=== PATIENT | male | born 1995 | race Two or more races ===

== ENCOUNTER 2020-07-03 04:30 | Inpatient (IN) | payer MEDICAID ==
[2020-07-03] VITALS (8 sets, daily range): BP systolic 110–120; BP diastolic 65–75
[~2020-07-03] VITALS: Ht 172.7 cm; Wt 50.5 kg
[2020-07-03] MEDS ORDERED: PERTUSS(ACELL),DIPH,TET VAC/PF 0.5 ML SYRINGE IM. ONE (04:45)
[2020-07-03 05:03] LABS: COVID AG,FIA SOURCE NASOPHARYNGEAL
[2020-07-03 05:08] LABS: BASOPHILS % (AUTO) 0.2 % (0.0-2.0); EOSINOPHILS % (AUTO) 0 % (1.0-6.0); HEMATOCRIT 44.5 % (41-53); HEMOGLOBIN 15.1 g/dL (13.5-17.5); LYMPHOCYTES # (AUTO) 1.1 K/uL (1.0-4.8); LYMPHOCYTES % (AUTO) 6.3 % (22.0-44.0); MEAN CORPUSCULAR HEMOGLOBIN 30.6 pg (26.0-34.0); MEAN CORPUSCULAR HGB CONC 33.9 G/dL (31.0-37.0); MEAN CORPUSCULAR VOLUME 90 fL (80-100); MONOCYTES # (AUTO) 0.5 K/uL (0.1-1.0); NEUTROPHILS # (AUTO) 16.1 K/uL (1.8-7.7); PLATELET COUNT (AUTO) 290 K/uL (150-450); RED BLOOD CELL COUNT(AUTO) 4.93 MIL/uL (4.50-5.90); RED CELL DISTRIBUTION WIDTH 12.7 % (11.5-14.5)
[2020-07-03] MEDS ORDERED: DiphenhydrAMINE HCL 50 MG/ML VIAL IM ONE (05:15)
[2020-07-03] MEDS ORDERED: HALOPERIDOL LACTATE 5 MG/ML VIAL IM ONE (05:15)
[2020-07-03] MEDS ORDERED: LORazepam 2 MG/ML VIAL IM ONE (05:15)
[2020-07-03 05:16] LABS: NEUTROPHILS % (AUTO) 90.5 % (40.0-70.0)
[2020-07-03 05:18] LABS: ANION GAP 13 mmol/L (8-16); CALCIUM, TOTAL 8.7 mg/dL (8.8-10.5); CARBON DIOXIDE 27 mmol/L (22-29); CHLORIDE 106 mmol/L (98-107); CREATININE 1.19 mg/dL (0.60-1.30); GLOMERULAR FILTR. RATE CALC > 60 mL/min (>60); GLUCOSE,RANDOM 123 mg/dL (70-110); SODIUM SERUM 146 mmol/L (136-145); UREA NITROGEN, BLOOD 15 mg/dL (7-18)
[2020-07-03 05:20] LABS: ALANINE AMINOTRANSFERASE 31 U/L (12-78); ALBUMIN 5.1 g/dL (3.4-5.0); ALKALINE PHOSPHATASE 54 U/L (46-116); ASPARTATE AMINOTRANSFERASE 31 U/L (15-37); BILIRUBIN,TOTAL 0.8 mg/dL (0.1-1.0); SALICYLATE < 2.8 mg/dL (2.8-20.0); TOTAL PROTEIN, SERUM 7.9 g/dL (6.4-8.2)
[2020-07-03 05:21] LABS: ACETAMINOPHEN < 2 mcg/mL (10-30)
[2020-07-03] MEDS ORDERED: HALOPERIDOL 5 MG TABLET PO PRN (09:45)
[2020-07-03] MEDS ORDERED: LORazepam 2 MG TABLET PO PRN (09:45)
[2020-07-03] MEDS ORDERED: ZOLPIDEM TARTRATE 10 MG TABLET PO PRN (09:45)
[2020-07-03] MEDS ORDERED: ChlordiazePOXIDE HCL 25 MG CAPSULE PO PRN (15:45)
[2020-07-04] VITALS: BP 114/78
[2020-07-04 04:00] VITALS: BP 117/70
[2020-07-04] MEDS ORDERED: ChlordiazePOXIDE HCL 25 MG CAPSULE PO PRN (07:00)
[2020-07-04] MEDS ORDERED: GuaiFENesin/D-METHORPHAN [SUGAR-FREE] 200-20MG/10 ML SYRUP UDCUP PO PRN (07:45)
[2020-07-04] MEDS ORDERED: MAGNESIUM HYDROXIDE SUSPENSION 30 ML UDCUP PO PRN (07:45)
[2020-07-04] MEDS ORDERED: CloNIDine HCL 0.1 MG TABLET PO PRN (07:45)
[2020-07-04] MEDS ORDERED: MAG HYDROX/AL HYDROX/SIMETH ES 30 ML SUSPENSION UDCUP PO PRN (07:45)
[2020-07-04] MEDS ORDERED: PETROLATUM,WHITE 28 GM JELLY TP PRN (07:45)
[2020-07-04] MEDS ORDERED: DOCUSATE SODIUM 100 MG CAPSULE PO PRN (07:45)
[2020-07-04] MEDS ORDERED: ONDANSETRON HCL 4 MG TABLET PO PRN (07:45)
[2020-07-04] MEDS ORDERED: ALBUTEROL SULFATE HFA 90 MCG/PUFF 8 GM INHALER IH PRN (07:45)
[2020-07-04] MEDS ORDERED: LOPERAMIDE HCL 2 MG CAPSULE PO PRN (07:45)
[2020-07-04] MEDS ORDERED: NICOTINE 14 MG/24 HOUR PATCH TD PRN (07:45)
[2020-07-04] MEDS ORDERED: IBUPROFEN 400 MG TABLET PO PRN (07:45)
[2020-07-04 08:07] LABS: CHOL/HDL RATIO 1.9 (4.2-7.3); FREE T4 (FREE THYROXINE) 1.06 ng/dL (0.76-1.46); THYROID STIMULATING HORMONE 0.73 uIU/mL (0.36-3.74)
[2020-07-04 08:29] VITALS: BP 115/74
[2020-07-04] MEDS: ChlordiazePOXIDE HCL 25 MG CAPSULE PO SCH ×4 (09:16→20:19)
[2020-07-04 12:41] VITALS: BP 116/70
[2020-07-04 16:18] VITALS: BP 119/81
[2020-07-04 17:45] VITALS: BP 119/81
[2020-07-05 05:51] VITALS: BP 116/72
[2020-07-05] MEDS: ChlordiazePOXIDE HCL 25 MG CAPSULE PO SCH ×4 (08:22→20:35)
[2020-07-05 08:29] LABS: APPEARANCE,URINE TURBID (CLEAR); BILIRUBIN,URINE NEGATIVE (NEGATIVE); GLUCOSE, URINE (UA) NEGATIVE (NEGATIVE); KETONES,URINE >=80 mg/dL (NEGATIVE); LEUKOCYTE ESTERASE ,URINE NEGATIVE (NEGATIVE); NITRATE,URINE NEGATIVE (NEGATIVE); OCCULT BLOOD,URINE NEGATIVE (NEGATIVE); PH,URINE 5.5 (5.0-8.0); PROTEIN,URINE NEGATIVE (NEGATIVE); UROBILINOGEN,URINE 0.2 mg/dL (<=1.0)
[2020-07-05 09:23] VITALS: BP 116/68
[2020-07-05 12:44] VITALS: BP 116/78
[2020-07-05 16:32] VITALS: BP 112/70
[2020-07-05 16:33] VITALS: BP 112/70
[2020-07-06] MEDS: ACETAMINOPHEN 325 MG TABLET PO PRN ×2 (05:30→08:55)
[2020-07-06 05:32] VITALS: BP 113/59
[2020-07-06 06:13] VITALS: BP 115/60
[2020-07-06] MEDS ORDERED: ChlordiazePOXIDE HCL 10 MG CAPSULE PO PRN (07:00)
[2020-07-06 07:32] LABS: BASOPHILS % (AUTO) 0.3 % (0.0-2.0); EOSINOPHILS % (AUTO) 6.1 % (1.0-6.0); LYMPHOCYTES # (AUTO) 1.6 K/uL (1.0-4.8); LYMPHOCYTES % (AUTO) 22.5 % (22.0-44.0); MEAN CORPUSCULAR HGB CONC 34.1 G/dL (31.0-37.0); MEAN CORPUSCULAR VOLUME 91 fL (80-100); MONOCYTES # (AUTO) 0.9 K/uL (0.1-1.0); MONOCYTES % (AUTO) 12.6 % (2.0-9.0); NEUTROPHILS # (AUTO) 4.2 K/uL (1.8-7.7); NEUTROPHILS % (AUTO) 58.5 % (40.0-70.0); PLATELET COUNT (AUTO) 234 K/uL (150-450); RED BLOOD CELL COUNT(AUTO) 4.52 MIL/uL (4.50-5.90); RED CELL DISTRIBUTION WIDTH 12.5 % (11.5-14.5)
[2020-07-06 07:50] LABS: ANION GAP 7 mmol/L (8-16); CALCIUM, TOTAL 9.1 mg/dL (8.8-10.5); CARBON DIOXIDE 29 mmol/L (22-29); CHLORIDE 104 mmol/L (98-107); CREATININE 0.87 mg/dL (0.60-1.30); GLOMERULAR FILTR. RATE CALC > 60 mL/min (>60); GLUCOSE,RANDOM 100 mg/dL (70-110); POTASSIUM 5.2 mmol/L (3.5-5.1); SODIUM SERUM 140 mmol/L (136-145); UREA NITROGEN, BLOOD 14 mg/dL (7-18)
[2020-07-06] MEDS ORDERED: SODIUM POLYSTYRENE SULFONATE 15 GM/60 ML SUSPENSION BOTTLE PO ONE (08:15)
[2020-07-06 08:19] VITALS: BP 108/66
[2020-07-06] MEDS: ChlordiazePOXIDE HCL 10 MG CAPSULE PO SCH ×4 (09:45→20:05)
[2020-07-06] MEDS: BACITRACIN 28 GM OINTMENT TP SCH ×2 (09:49→16:25)
[2020-07-06 11:13] VITALS: BP 108/66
[2020-07-06 16:37] VITALS: BP 111/73
[2020-07-06 17:21] VITALS: BP 111/73
[2020-07-07 05:20] VITALS: BP 106/64
[2020-07-07] MEDS ORDERED: ChlordiazePOXIDE HCL 10 MG CAPSULE PO PRN (07:00)
[2020-07-07 08:14] VITALS: BP 115/66
[2020-07-07] MEDS ORDERED: FOLIC ACID 1 MG TABLET PO SCH (09:00)
[2020-07-07] MEDS ORDERED: MULTIVITAMINS WITH MINERALS, THERAPEUTIC TABLET PO SCH (09:00)
[2020-07-07] MEDS ORDERED: THIAMINE 100 MG TABLET PO SCH (09:00)
[2020-07-07] MEDS ORDERED: THIAMINE 100 MG/ML 2 ML VIAL IM SCH (09:00)
[2020-07-07] MEDS: BACITRACIN 28 GM OINTMENT TP SCH (09:18)
[2020-07-07 12:08] VITALS: BP 112/62
== END 2020-07-07 21:19 | disposition home or self-care (01) | DRG 751 ==
LOC: EMS 04:32 → B2S 10:59
PROVIDERS: ADMIT Psychiatry & Neurology Child & Adolescent Psychiatry; ATTEND Psychiatry & Neurology Child & Adolescent Psychiatry
DX: F33.2 Major depressive disorder, recurrent severe without psychotic features (principal); N17.9 Acute kidney failure, unspecified; E87.0 Hyperosmolality and hypernatremia; E87.5 Hyperkalemia; R45.851 Suicidal ideations; Z20.822 Contact with and (suspected) exposure to COVID-19; F10.10 Alcohol abuse, uncomplicated; F41.9 Anxiety disorder, unspecified; D72.829 Elevated white blood cell count, unspecified
CPT/HCPCS: 70450; 70486; 80048; 80053; 80061; 81003; 84132; 84439; 84443; 85025; 87426; 90715; 99291; G0480; G0481; J1200; J1630; J2060

== ENCOUNTER 2024-05-31 03:08 | Emergency (ER) | payer MEDICAID ==
[~2024-05-31] VITALS: Ht 172.7 cm; Wt 79.5 kg
[2024-05-31 03:30] VITALS: TEMP 98.2
[2024-05-31] MEDS: ACETAMINOPHEN 325 MG TABLET PO ONE (05:01)
[2024-05-31] MEDS: IBUPROFEN 400 MG TABLET PO ONE (05:01)
[2024-05-31 05:04] VITALS: BP 125/92; PULSE 94; RESP 16; O2SAT 99
== END 2024-05-31 05:26 | disposition home or self-care (01) ==
LOC: EMS 03:10
DX: S00.83XA Contusion of other part of head, initial encounter (principal); S60.512A Abrasion of left hand, initial encounter; S09.8XXA Other specified injuries of head, initial encounter; F12.90 Cannabis use, unspecified, uncomplicated; F32.A Depression, unspecified; Y04.8XXA Assault by other bodily force, initial encounter; Y93.89 Activity, other specified; Y92.89 Other specified places as the place of occurrence of the external cause; Y99.8 Other external cause status
CPT/HCPCS: 71045; 99285